=== PATIENT | male | born 1960 | race African-American/Black ===

== ENCOUNTER 2018-06-26 18:13 | Inpatient (IN) | payer MEDICARE, BC ==
[~2018-06-26] VITALS: Ht 190.5 cm; Wt 131.5 kg
[2018-06-26 19:43] LABS: BASOPHILS % 0.5 % (0.0-2.0); EOSINOPHILS % 1.9 % (0.0-5.0); HEMATOCRIT. 43.2 % (42.0-52.0); HEMOGLOBIN. 13.6 g/dL (14.0-18.0); LYMPHOCYTES % 9.9 % (20.0-50.0); MEAN CORPUSCULAR HEMOGLOBIN 27.3 pg (28.0-32.0); MEAN PLATELET VOLUME 8.5 fl (7.4-10.4); MONOCYTES % 5.1 % (2.0-8.0); NEUTROPHILS % 82.6 % (40.0-76.0); PLATELET 166 x1000/uL (130-400); RED BLOOD CELL COUNT 4.97 mill/uL (4.7-6.1); RED CELL DISTRIBUTION WIDTH 17.9 % (11.6-14.6)
[2018-06-26] MEDS ORDERED: DEXTROSE 50% WATER 50ML SYRINGE IV ONE (19:45)
[2018-06-26 19:47] LABS: CHLORIDE 98 mEq/L (98-107)
[2018-06-26 19:48] LABS: INR 1.1; PROTHROMBIN TIME 11.1 sec (9.1-11.1)
[2018-06-26] MEDS ORDERED: LORAZEPAM 2MG/ML CPJ IV PRN (22:30)
[2018-06-26] MEDS ORDERED: ONDANSETRON HCL 4MG/2ML INJ IV PRN (22:30)
[2018-06-26] MEDS ORDERED: CLONIDINE 0.1MG TABLET PO PRN (22:30)
[2018-06-26] MEDS ORDERED: MAGNESIUM/ALUMINUM HYDROXIDE/SIMETHICONE 30ML UDC PO PRN (22:30)
[2018-06-26] MEDS ORDERED: IPRATROPIUM/ALBUTEROL 0.5-3(2.5)MG/3ML NEB INH PRN (22:30)
[2018-06-26] MEDS ORDERED: DIPHENHYDRAMINE 50MG/ML VIAL IV PRN (22:30)
[2018-06-26] MEDS ORDERED: GUAIFENESIN 200MG/10ML SUGAR FREE UDC PO PRN (22:30)
[2018-06-26] MEDS ORDERED: HYDROCODONE/ACETAMINOPHEN 10/325MG TABLET PO PRN (22:30)
[2018-06-26] MEDS ORDERED: HYDRALAZINE 20MG/ML VIAL IV PRN (22:30)
[2018-06-26] MEDS ORDERED: HYDROMORPHONE HCL/PF 2MG/ML CPJ IV PRN (22:30)
[2018-06-26] MEDS ORDERED: DOCUSATE SODIUM 100MG CAPSULE PO PRN (22:30)
[2018-06-26] MEDS ORDERED: ACETAMINOPHEN 325MG TABLET PO PRN (22:30)
[2018-06-26] MEDS ORDERED: DEXTROSE 50% WATER 50ML SYRINGE IV PRN (22:30)
[2018-06-27] VITALS: BP_SYST 191; BP_SYST 195; BP_DIAS 91
[2018-06-27 04:00] VITALS: BP 163/71
[2018-06-27] MEDS ORDERED: SODIUM CHLORIDE 0.9% INJ 3ML FLUSH IVF SCH (06:00)
[2018-06-27] MEDS: BLOOD SUGAR DIAGNOSTIC STRIP TEST SCH ×2 (06:59→12:00)
[2018-06-27 07:19] LABS: HEMATOCRIT. 40.6 % (42.0-52.0); HEMOGLOBIN. 13.1 g/dL (14.0-18.0); MEAN CORPUSCULAR HEMOGLOBIN 27.8 pg (28.0-32.0); MEAN CORPUSCULAR VOLUME 86.3 fL (80.0-94.0); MEAN PLATELET VOLUME 8.9 fl (7.4-10.4); PLATELET 156 x1000/uL (130-400)
[2018-06-27 07:41] LABS: CHLORIDE 99 mEq/L (98-107)
[2018-06-27 08:00] VITALS: BP 165/71
[2018-06-27 08:01] LABS: LDL CHOLESTEROL 64 mg/dL (5-100)
[2018-06-27 08:02] LABS: CREATINE KINASE 436 IU/L (39-308); CREATINE KINASE MB FRACTION 8.8 ng/mL (0.5-3.6); HDL CHOLESTEROL 29 mg/dL (40-59); T4 FREE 0.59 ng/dL (0.76-1.46)
[2018-06-27] MEDS ORDERED: ENOXAPARIN 40MG/0.4ML SYR SUBCUT SCH (09:00)
[2018-06-27 12:00] VITALS: BP 155/73
[2018-06-27 12:44] VITALS: BP 155/73
[2018-06-27 14:39] LABS: PLATELET ESTIMATE NORMAL
== END 2018-06-27 13:55 | disposition home or self-care (01) | DRG 917 ==
LOC: ER 18:13 → 7WST 20:24 → EDBEDREQTM 20:27 → EDBEDREQ 20:27 → ENRESERV 23:05
PROVIDERS: ADMIT Internal Medicine; ATTEND Internal Medicine
DX: T38.3X1A Poisoning by insulin and oral hypoglycemic [antidiabetic] drugs, accidental (unintentional), initial encounter (principal); N18.6 End stage renal disease; I12.0 Hypertensive chronic kidney disease with stage 5 chronic kidney disease or end stage renal disease; E11.649 Type 2 diabetes mellitus with hypoglycemia without coma; E11.22 Type 2 diabetes mellitus with diabetic chronic kidney disease; D64.9 Anemia, unspecified; E78.5 Hyperlipidemia, unspecified; Z99.2 Dependence on renal dialysis; Z88.1 Allergy status to other antibiotic agents; Y92.89 Other specified places as the place of occurrence of the external cause
CPT/HCPCS: 36415; 71045; 80061; 82550; 82553; 82962; 83036; 83605; 84439; 84443; 84484; 93005; 96374; 96375; 99285; J0360; J1650